=== PATIENT | female | born 1950 | race Caucasian/White ===

== ENCOUNTER 2024-03-30 12:23 | Emergency (ER) | payer MEDICARE, BC, MEDICAID, SELFPAY ==
[2024-03-30 12:44] VITALS: BP 134/87; PULSE 83; RESP 16; O2SAT 97; BMI 41.6
--- NOTE | 2024-03-30 13:27 | ED.GENADULT ---
HPI - General Adult General Chief complaint: General Medical Stated complaint: SEC 12 Time Seen by Provider: 03/30/24 12:55 Source: patient and EMS Mode of arrival: EMS Limitations: no limitations History of Present Illness ED Provider: DERREK SHARMA narrative: 73 yo female with PMH of MG who is at [facility] she notes she was very frustrated yesterday due to not getting her tylenol and atenolol when she was supposed to and when she tried to ask staff why they gave her no good reason other than she has to wait. She states it was a terrible day and she became so frustrated with them she stated I might as well kill myself On arrival here she states this was ridiculous she would never do this and she regrets it she said it out of frustration. She states she wants to go back. complaint: anxiety, depression Onset (ago): day(s) (yesterday ) Radiation: non-radiation Severity: mild Relieving factors: none Exacerbating factors: other Associated symptoms: denies other symptoms Treatments prior to arrival: none Related Data Home Medications ?Medication ?Instructions ?Recorded ?Confirmed acetaminophen 650 mg 650 mg PO Q12H PRN Fever Or Pain 03/30/24 tablet,extended release bisacodyl 10 mg rectal suppository 10 mg NH DAILY PRN Constipation 03/30/24 diclofenac sodium 1 % topical gel 2 g topical Q8H PRN Pain 03/30/24 divalproex 250 mg tablet,delayed 250 mg PO BID 03/30/24 03/30/24 release docusate sodium 100 mg capsule 100 mg PO BID 03/30/24 (Colace) fluoxetine 20 mg capsule 20 mg PO DAILY 03/30/24 03/30/24 folic acid 1 mg tablet 1 mg PO DAILY 03/30/24 03/30/24 gabapentin 100 mg capsule 200 mg PO TID 03/30/24 03/30/24 insulin glargine 100 unit/mL (3 35 unit subcut BEDTIME 03/30/24 03/30/24 mL) subcutaneous pen (Lantus Solostar U-100 Insulin) methotrexate sodium 2.5 mg tablet 20 mg PO MO 03/30/24 03/30/24 multivitamin 1 tab PO DAILY 03/30/24 03/30/24 oxycodone 5 mg tablet 5 mg PO BID 03/30/24 03/30/24 oxycodone 5 mg tablet 5 mg PO Q4H PRN Pain 03/30/24 03/30/24 prednisone 10 mg tablet 10 mg PO DAILY 03/30/24 03/30/24 pyridostigmine bromide 60 mg tablet 60 mg PO TID 03/30/24 03/30/24 sennosides 8.6 mg tablet (senna) 8.6 mg PO DAILY PRN Constipation 03/30/24 03/30/24 sodium phosphates 19 gram-7 118 ml NH DAILY PRN Constipation 03/30/24 03/30/24 gram/118 mL enema (Fleet Enema) tetrahydrozoline 0.05 % eye drops 1 drp ophthalmic (eye) BID 03/30/24 03/30/24 Allergies Allergy/AdvReac Type Severity Reaction Status Date / Time No Known Allergies Allergy Verified 03/30/24 12:46 Review of Systems Review of Systems: Constitutional : No Fever, No Chills ENT/Mouth : No Ear Pain, No Nasal Congestion, No sore throat Eyes: No Eye Pain, No Swelling, No Redness Cardiovascular : No Chest Pain, No SOB Respiratory : No Cough, No Sputum, No Dyspnea Gastrointestinal : No Nausea, No Vomiting, No Diarrhea, No Hematochezia, No Melena Genitourinary : No Dysuria, No Urinary Frequency, No Hematuria Musculoskeletal : No Myalgias Skin : No Skin Lesions, No rash Neuro : No Weakness, No Numbness, No Paresthesias, No Dizziness, No Headache Psych : positive Anxiety, no Depression, no SI/HI Heme/Lymph: No Lymphadenopathy Endocrine : No Polyuria, No Polydipsia All other systems reviewed and are negative [facility] Past Medical History Attestation statement: The following information was validated with the patient. Source: old records reviewed Medical History (Updated 03/30/24 @ 13:36 by Zoe Lui DO) Myasthenia gravis Social History Social History (Updated 03/30/24 @ 13:37 by Zoe Lui DO) Patient Tobacco Use Status: Never used Tobacco Physical Exam ED Vital Signs: Vital Signs - 24 hr 03/30/24 12:44 Pulse Rate 83 Respiratory Rate 16 Blood Pressure 134/87 Pulse Oximetry 97 Oxygen Delivery Method Room Air BMI result Body Mass Index 41.6 Appearance: Alert. Oriented X3. No acute distress. Calm cooperative very articulate about what happened Eyes: Pupils equal, round and reactive to light. ENT: Pharynx normal. Neck: Normal inspection. Neck supple. CVS: Normal heart rate and rhythm. Pulses normal. Respiratory: No respiratory distress. Breath sounds normal. Abdomen: Soft and nontender. Skin: Skin warm and dry. Normal skin color. Normal skin turgor. Extremities: No lower extremity edema. No calf ttp Neuro: Oriented X 3. No motor deficit. No sensory deficit. Medical Decision Making Medical Decision Making MDM Narrative: 73 yo female with PMH of MG who is at [facility] frustrated with her care made off the cuff statement about SI but adamantly denies she will hurt herself and admits it was out of frustration she is alert and oriented does not have SI now I do not see that she has emergent psych needs she is not on S12 at this time. Differential Diagnosis Differential Diagnoses: The differential diagnosis associated with the presentation includes anxiety, adjustment disorder Admission/Observation Consideration of admission/observation: Escalation of care including admission/observation considered no SI/HI not situational not disoriented can be DC back to facility Independent Historian Clinical information obtained from an independent historian. History obtained from or confirmed by: EMS External Record Review External record reviewed: Outpatient record Discharge Plan Discharge Clinical Impression: Adjustment disorder Qualifiers: Adjustment disorder type: with anxious mood Qualified Code(s): F43.22 - Adjustment disorder with anxiety Patient Disposition: Home, Self-Care Instructions: Suicide Prevention (ED) Additional Instructions: patient has no acute needs at this time monitor for worsening symptoms adamantly denies suicidal ideation this was in response to stress has no active plans for SI
--- NOTE | 2024-03-30 13:34 | PHA.MEDREC ---
Pharmacy Consult ? Medication Reconciliation Pharmacy has completed the medication reconciliation. utilized list from [facility] to confirm med list.
--- NOTE | 2024-03-30 13:40 | PC.NURSE ---
pt was provided a lunch tray.
--- NOTE | 2024-03-30 14:12 | MHC.CM.ED ---
Received case management consult from Dr Lui. Patient came to the ER due to SI comments. Cleared by Dr Lui. Return referral made to [facility] via [facility]. Hany MAJOR booked for 630pm. [facility] with chart. Patient, Rom SOTELO and Dr Lui aware. Continue to monitor for d/c needs.
--- NOTE | 2024-03-30 14:14 | PC.NURSE ---
RN-RN report called into [facility]. Plan for transport at 1830.
[2024-03-30 18:21] VITALS: BP 141/87; PULSE 80; RESP 17; TEMP 36.8; O2SAT 96
--- NOTE | 2024-03-30 19:43 | PC.NURSE ---
Pt upset that ambulance had not arrived yet. Patient changed, new brief applied, ice cream given, patient satisfied at this time.
[2024-03-30] MEDS: oxyCODONE HCl Immed Release 5 MG TABLET PO (21:41)
[2024-03-30] MEDS: Acetaminophen 325 MG TABLET 650 MG PO (21:41)
[2024-03-30 22:12] VITALS: BP 141/87; PULSE 80; RESP 17; TEMP 36.8; O2SAT 96
== END 2024-03-30 22:14 ==
PROVIDERS: Emergency Provider Emergency Medicine
DX: F43.22 Adjustment disorder with anxiety (principal); F33.1 Major depressive disorder, recurrent, moderate; Z79.899 Other long term (current) drug therapy
CPT/HCPCS: 99284